=== PATIENT | female | born 1930 | race Caucasian/White ===

== ENCOUNTER 2017-11-20 10:02 | Day surgery (SDC) | payer MEDICARE, BC ==
[2017-11-16 11:11] VITALS: BMI 25.9
[~2017-11-20 10:02] MED LIST: SODIUM CHLORIDE 0.9% 1,000 ML IV SCH
[2017-11-20] MEDS ORDERED: ceFAZolin IN SWFI 2 GM/20 ML SYRINGE IVP ONE (11:00)
[2017-11-20 11:38] LABS: Glucose,Whole Blood 85 mg/dL (75-99)
[2017-11-20] MEDS ORDERED: MIDAZOLAM 2 MG/2 ML VIAL IVP ONE (12:44)
[2017-11-20] MEDS ORDERED: LIDOCAINE 2% INJ 20 MG/ML SQ ONE (12:45)
--- NOTE | 2017-11-20 13:04 | P.PCN ---
Preoperative Diagnosis: Loop monitor implant Primary physicians: dr. De Financial Planning Advisor: Dr. Lima Indication: Sick Sinus Syndrome, paroxysmal atrial tachycardia Patient was brought to the EP lab in a fasting state. Written informed consent was obtained prior to the procedure. The left pectoral area was prepped and draped per protocol. Intravenous antibiotic was administered preoperatively. A subcutaneous Loop monitor was implanted successfully and the wound was closed per protocol. The device was programmed to detect significant herman- arrhythmic and tachy-arrhythmic events, per protocol. Device and programming details: Programmed to detect bradycardia events as well as A. fib events, future decisions regarding permanent pacing as well as anticoagulation for stroke prevention Patient underwent EP procedure under conscious sedation/moderate sedation, monitoring of the level of consciousness and physiologic parameters including but not limited to vital signs and oxygenation. Patient tolerated the procedure well without any acute complications. Start time: 1241 Stop time: 1255 Condition: stable Disposition: same day
[2017-11-20 14:33] VITALS: PULSE 84
[2017-11-20 14:45] VITALS: BP 170/74; RESP 18
== END 2017-11-20 14:20 | disposition home or self-care (01) ==
LOC: CATHEP 10:02
PROVIDERS: ATTEND Internal Medicine Clinical Cardiac Electrophysiology
DX: I49.5 Sick sinus syndrome (principal); I47.1 Supraventricular tachycardia; I48.0 Paroxysmal atrial fibrillation; I45.10 Unspecified right bundle-branch block; I25.10 Atherosclerotic heart disease of native coronary artery without angina pectoris; I10 Essential (primary) hypertension; E11.9 Type 2 diabetes mellitus without complications; E78.00 Pure hypercholesterolemia, unspecified; E03.9 Hypothyroidism, unspecified; H35.30 Unspecified macular degeneration; Z85.828 Personal history of other malignant neoplasm of skin; Z82.49 Family history of ischemic heart disease and other diseases of the circulatory system; Z79.84 Long term (current) use of oral hypoglycemic drugs; Z79.82 Long term (current) use of aspirin; Z79.890 Hormone replacement therapy; Z79.899 Other long term (current) drug therapy; Z88.1 Allergy status to other antibiotic agents; Z88.2 Allergy status to sulfonamides; Z96.651 Presence of right artificial knee joint
CPT/HCPCS: 33282; C1764; J2001; J2250; J0690

== ENCOUNTER 2018-02-20 13:23 | Day surgery (SDC) | payer MEDICARE, BC ==
[~2018-02-20 13:23] MED LIST changes: +LIDOCAINE 1% 20 ML VIAL (10MG/ML) FOR IV START INTRADERMA PRN; +MIDAZOLAM 2 MG/2 ML VIAL IV PRN; -SODIUM CHLORIDE 0.9% 1,000 ML IV SCH; +ceFAZolin 1,000 MG in SODIUM CHLORIDE 0.9% IRRIGATIO 250 ML IRRIGATION ONE
[2018-02-20] MEDS ORDERED: SODIUM CHLORIDE 0.9% 500 ML IV ONE (15:07)
[2018-02-20 15:08] LABS: Glucose,Whole Blood 89 mg/dL (75-99)
[2018-02-20 15:12] LABS: Basophils % (A) 0 %; Eosinophils # (A) 0.1 k/uL (0-0.7); Eosinophils % (A) 1 %; HGB 14.4 gm/dL (11.4-16.0); Lymphocytes # (A) 1.3 k/uL (1.0-4.8); Lymphocytes % (A) 22 %; MCH 32.7 pg (25.0-35.0); MCHC 33.5 g/dL (31.0-37.0); MCV 97.7 fL (80.0-100.0); Mean Platelet Volume 7.5; Monocytes # (A) 0.5 k/uL (0-1.0); Monocytes % (A) 9 %; Neutrophils # (A) 3.8 k/uL (1.3-7.7); Neutrophils % (A) 66 %; Platelet Count 157 k/uL (150-450); RDW 11.9 % (11.5-15.5); WBC 5.8 k/uL (3.8-10.6)
[2018-02-20 15:28] LABS: Calcium 9.4 mg/dL (8.4-10.2); Potassium 4.7 mmol/L (3.5-5.1)
[2018-02-20] MEDS ORDERED: PROPOFOL 10 MG/ML 20 ML VIAL IV ONE (16:39)
[2018-02-20] MEDS ORDERED: fentaNYL (PF) 50 MCG/ML 2 ML AMP ONE (16:39)
[2018-02-20] MEDS ORDERED: MIDAZOLAM 2 MG/2 ML VIAL ONE (16:39)
[2018-02-20] MEDS ORDERED: SODIUM CHLORIDE 0.9% 100 ML with CLINDAMYCIN 600 MG IV ONE ×2 (16:55)
[2018-02-20] MEDS: ceFAZolin IN SWFI 2 GM/20 ML SYRINGE IVP ONE ×2 (16:55→17:27)
[2018-02-20] MEDS ORDERED: LIDOCAINE 1% INJ 10MG/ML (20 ML MDV) ONE ×2 (16:58→17:33)
[2018-02-20] MEDS ORDERED: IOPAMIDOL-250 50ML BTL IV ONE (17:10)
[2018-02-20] MEDS ORDERED: LIDOCAINE 1% INJ 10MG/ML (20 ML MDV) SQ ONE ×3 (17:19→19:45)
[2018-02-20] MEDS ORDERED: ACETAMINOPHEN IV (For NPO) 1,000 MG in EMPTY BAG 1 BAG IVPB ONE (19:24)
[2018-02-20] MEDS ORDERED: ACETAMINOPHEN TAB 325 MG TAB PO PRN (19:24)
[2018-02-20] MEDS ORDERED: HYDROcodone/APAP 5-325MG 1 EACH TAB PO PRN (19:24)
--- NOTE | 2018-02-20 20:08 | CE ---
CARDIAC ELECTROPHYSIOLOGY REPORT Sue Thompson is an 87-year-old female who has a history of syncope and had a loop monitor implanted. She presented with an episode of syncope associated with long pause with paroxysmal AV block Mobitz II. She was brought in for a dual-chamber pacemaker implantation, possible physiologic septal pacing. 1. Transvenous temporary pacing. Right groin was prepped and draped as per protocol. A venous sheath was placed in the right femoral vein. Via this, an octapolar catheter was placed in the His bundle area for His bundle mapping as well as temporary ventricular pacing for possible AV block. Next the left pectoral area was prepped and draped as per protocol. Lidocaine 1% was used for local anesthesia. A 4 cm incision was made parallel to the deltopectoral groove, about 1.5 cm medial to it. The incision was carried down to the level of the pectoralis muscle. A subfascial pocket was made. Hemostasis was assured. The left axillary vein was accessed and lead was positioned in the right heart. The atrial lead was a 45 cm Medtronic model #4574, serial #[id number]. This was positioned in the right atrial appendage. P waves 5.2 mV. Pacing impedance 715 ohms. Pacing threshold for the passive lead 0.3 V at 0.5 millisecond. Ten-volt test was negative. The RV lead was also a passive Medtronic lead model #4074, serial #[id number], 58 cm in length. This was placed in the RV apex. R-waves 9.8 mV. Pacing impedance 1256 ohms. Pacing threshold 0.6 V at 0.5 millisecond. Ten-volt test was negative. 1. Physiologic septal pacing was also attempted while good His bundle signals and non- selective capture was obtained several times. The lead was not stable and therefore this was then removed. A dual-chamber pacemaker was implanted. This was a Medtronic model #A2DR01, serial #[id number]. Leads and the generator were then placed in the subfascial pocket. The wound was closed in 3 layers and dressed per protocol. 2. The loop monitor was then removed. Local anesthesia was given over the loop monitor. An incision was made and the loop monitor was explanted and silk sutures were applied and the wound was closed and dressed per protocol. RESULTS: Successful dual-chamber pacemaker implantation for paroxysmal AV block with bradycardia and pauses with associated syncope. MMODL / IJN: [id number] /
[2018-02-20] MEDS ORDERED: DEXTROSE 50%-WATER 50 ML SYRINGE IVP ONE (20:28)
[2018-02-20 20:33] LABS: Glucose,Whole Blood 63 mg/dL (75-99)
[2018-02-20 20:43] LABS: Glucose,Whole Blood 133 mg/dL (75-99)
[2018-02-20] MEDS ORDERED: ATORVASTATIN 20 MG TAB PO SCH (21:00)
[2018-02-20] MEDS ORDERED: ASPIRIN 81 MG PO SCH (21:00)
[2018-02-20] MEDS ORDERED: ONDANSETRON 4 MG/2 ML VIAL IVP PRN (21:24)
[2018-02-20] MEDS: ceFAZolin IN SWFI 2 GM/20 ML SYRINGE IVP SCH (21:56)
[2018-02-21] MEDS ORDERED: HYDROcodone/APAP 5-325MG 1 EACH TAB ONE (01:05)
[2018-02-21] MEDS: ceFAZolin IN SWFI 2 GM/20 ML SYRINGE IVP SCH ×3 (05:29→16:50)
[2018-02-21] MEDS ORDERED: LEVOTHYROXINE 50 MCG TAB PO SCH (06:30)
[2018-02-21 07:06] LABS: Glucose,Whole Blood 145 mg/dL (75-99)
[2018-02-21] MEDS ORDERED: glipiZIDE 5 MG TAB PO SCH (07:30)
[2018-02-21] MEDS: SODIUM CHLORIDE 0.9% 1,000 ML IV SCH ×3 (07:52→07:53)
[2018-02-21] MEDS: LACTATED RINGERS 1,000 ML IV SCH ×2 (07:52→16:42)
[2018-02-21] MEDS ORDERED: FUROSEMIDE 10 MG TAB PO SCH (09:00)
[2018-02-21] MEDS ORDERED: LISINOPRIL 20 MG TAB PO SCH (09:00)
[2018-02-21] MEDS ORDERED: SPIRONOLACTONE 25 MG TAB PO SCH (09:00)
[2018-02-21 09:10] VITALS: BMI 27.1
[2018-02-21 12:00] LABS: Glucose,Whole Blood 233 mg/dL (75-99)
--- NOTE | 2018-02-21 12:30 | DS ---
DISCHARGE SUMMARY Sue Thompson is an 87-year-old female who underwent dual chamber pacemaker implantation for bradycardia and pauses secondary to paroxysmal AV block with presyncope/syncope. The loop monitor was explanted, dual-chamber pacemaker was implanted. She is doing well today. Her pacemaker interrogations were within normal limits. After her chest x-ray and completion of IV antibiotics, she will go home. Continue with the current medications and see us in the office in 5 days or the [facility] and follow up with me in about 3 months. MMODL / IJN: [id number] /
[2018-02-21 13:27] LABS: Hemoglobin A1C 6.3 % (4.0-6.0)
--- NOTE | 2018-02-21 15:27 | XR ---
EXAMINATION TYPE: XR chest 2V DATE OF EXAM: 02/21/2018 COMPARISON: NONE HISTORY: Lead placement check TECHNIQUE: Frontal and lateral views of the chest are obtained. FINDINGS: There is a generator in the left pectoral region, leads are present in the right atrium an d ventricle. No evident pneumothorax or pleural effusion. Patient is rotated and there are overlying cardiac leads. Prominent lung volumes suggests underlying COPD. Arthropathy noted in the shoulders. IMPRESSION: No evident complication status post pacemaker placement.
[2018-02-21 16:18] VITALS: BP 136/76; PULSE 75; RESP 18; TEMP 98.2
[2018-02-21 17:02] LABS: Glucose,Whole Blood 116 mg/dL (75-99)
== END 2018-02-21 18:37 | disposition home or self-care (01) ==
LOC: CATHEP 13:23 → 3OBS 19:20 → CATHEP 02-21 18:37
PROVIDERS: ATTEND Internal Medicine Clinical Cardiac Electrophysiology
DX: I44.1 Atrioventricular block, second degree (principal); I49.5 Sick sinus syndrome; I45.10 Unspecified right bundle-branch block; I10 Essential (primary) hypertension; I25.10 Atherosclerotic heart disease of native coronary artery without angina pectoris; E11.9 Type 2 diabetes mellitus without complications; E78.00 Pure hypercholesterolemia, unspecified; J45.909 Unspecified asthma, uncomplicated; E07.9 Disorder of thyroid, unspecified; Z79.84 Long term (current) use of oral hypoglycemic drugs; Z79.82 Long term (current) use of aspirin; Z79.890 Hormone replacement therapy; Z79.899 Other long term (current) drug therapy; Z79.51 Long term (current) use of inhaled steroids; Z91.040 Latex allergy status; Z88.1 Allergy status to other antibiotic agents; Z88.2 Allergy status to sulfonamides
CPT/HCPCS: 33208; 33284; 80048; 85025; 83036; 71046; C1769 ×4; C1894; C1892; C1785; C1898 ×2; C1730; J2405; J2001; J0690 ×2; Q9966